=== PATIENT | male | born 1975 | race African-American/Black ===

== ENCOUNTER 2020-05-14 10:59 | Outpatient (CLI) | payer SELFPAY ==
[2020-05-14 11:14] LABS: Hematocrit 45.5 % (40.0-54.0); Hemoglobin 15.5 g/dL (14.0-18.0); Mean Corpuscular HGB Conc 34.1 g/dL (32.0-36.0); Mean Corpuscular Hemoglobin 30.8 pg (27.0-31.0); Mean Corpuscular Volume 90.3 fL (78.0-102.0); Mean Platelet Volume 10.2 fl (8.7-11.0); Platelet Count Result 240 K/mm3 (150-420); Red Blood Count 5.04 M/mm3 (4.70-6.10); Red Cell Distribution Width 13.6 % (11.6-14.4); White Blood Count 6.1 K/mm3 (4.8-10.8)
[2020-05-14 13:37] LABS: Alanine Aminotransferase 27 U/L (16-63); Albumin Level 4.6 g/dL (3.4-5.0); Alkaline Phosphatase 70 U/L (46-116); Anion Gap 18.5 mmol/L (7-16); Aspartate Amino Transferase 41 U/L (15-37); Bilirubin,Total 0.5 mg/dL (0.00-1.00); Blood Urea Nitrogen 8 mg/dL (7-18); Calcium 9.6 mg/dL (8.5-10.1); Carbon Dioxide 25 mmol/L (21-32); Chloride 97 mmol/L (98-108); Cholesterol 325 mg/dL (0-200); Estimated Glomerular Filt Rate > 60; Glucose 91 mg/dL (70-99); HDL Direct 76 mg/dL (40-60); LDL Cholesterol Calculated 187 mg/dL (<130); Osmolality Calculated 282 mOsm/kg (285-295); Potassium 3.5 mmol/L (3.5-5.1); Prostate Specific Antigen 3.8 ng/mL (< OR = 4.0); Sodium 137 mmol/L (136-145); Total Protein 8.8 g/dL (6.4-8.2); Triglycerides 310 mg/dL (0-150)
== END 2020-05-14 11:00 | disposition home or self-care (01) ==
PROVIDERS: PCP Family Medicine; Visit Provider Family Medicine
DX: Z80.42 Family history of malignant neoplasm of prostate (principal); I10 Essential (primary) hypertension
CPT/HCPCS: 36415; 80053; 80061; 84153; 85027

== ENCOUNTER 2020-12-06 08:43 | Outpatient (CLI) | payer MEDICAID, SELFPAY ==
--- NOTE | ~2020-12-06 | XR_ITS ---
XR hip LT 2V w AP pelvis DATE: 12/06/2020 09:09 INDICATION: Left hip pain. Weight loss. No known injury. TECHNIQUE: AP pelvis. AP and lateral views of left hip. COMPARISON: 11/24/2014 left hip FINDINGS: Mild left hip osteoarthritic arthritis. No fracture or dislocation, avascular necrosis or b one destruction is evident. The pubic symphysis and sacroiliac joints are intact. No pelvic fracture or bone destruction. IMPRESSION: Mild left hip osteoarthritis Reviewed, dictated and finalized at location [employer]
[2020-12-06 09:02] LABS: Hematocrit 40.8 % (40.0-54.0); Hemoglobin 13.9 g/dL (14.0-18.0); Mean Corpuscular HGB Conc 34.1 g/dL (32.0-36.0); Mean Corpuscular Hemoglobin 31.1 pg (27.0-31.0); Mean Corpuscular Volume 91.3 fL (78.0-102.0); Mean Platelet Volume 9.9 fl (8.7-11.0); Platelet Count Result 172 K/mm3 (150-420); Red Blood Count 4.47 M/mm3 (4.70-6.10); Red Cell Distribution Width 13.5 % (11.6-14.4); White Blood Count 7.2 K/mm3 (4.8-10.8)
[2020-12-06 10:02] LABS: Alanine Aminotransferase 33 U/L (16-63); Albumin Level 4.3 g/dL (3.4-5.0); Alkaline Phosphatase 84 U/L (46-116); Anion Gap 13 mmol/L (8-16); Aspartate Amino Transferase 45 U/L (15-37); Bilirubin,Total 0.4 mg/dL (0.00-1.00); Blood Urea Nitrogen 8 mg/dL (7-18); Calcium 9.3 mg/dL (8.5-10.1); Carbon Dioxide 26 mmol/L (21-32); Chloride 100 mmol/L (98-108); Estimated Glomerular Filt Rate > 60; Glucose 96 mg/dL (70-99); Lactate Dehydrogenase 166 U/L (85-227); Osmolality Calculated 286 mOsm/kg (285-295); Potassium 3.7 mmol/L (3.5-5.1); Prostate Specific Antigen 6.6 ng/mL (< OR = 4.0); Sodium 139 mmol/L (136-145); Total Protein 8.2 g/dL (6.4-8.2)
[2020-12-06 10:06] LABS: CRP < 0.2 mg/dL (0.0-0.9)
[2020-12-06 10:07] LABS: Free T4 Free Thyroxine Reflex 0.87 ng/dL (0.76-1.46); Thyroid Stimulating Hormone Reflex 5.29 u/IU/mL (0.36-3.74)
[2020-12-06 10:09] LABS: Erythrocyte Sedimentation Rate 25 mm/hr (0-15)
== END 2020-12-06 08:44 | disposition home or self-care (01) ==
LOC: CHSLAB 08:49
PROVIDERS: PCP Family Medicine; Visit Provider Family Medicine
DX: R63.4 Abnormal weight loss (principal)
CPT/HCPCS: 36415; 73502; 80053; 83615; 84153; 84439; 84443; 85027; 85652; 86140; G0103

== ENCOUNTER 2020-12-27 14:20 | Outpatient (CLI) | payer MEDICAID, SELFPAY | END 2020-12-27 14:21 | disposition home or self-care (01) | PROVIDERS: PCP Family Medicine; Visit Provider Urology | DX: R97.20 Elevated prostate specific antigen [PSA] (principal) | CPT/HCPCS: 36415; 84153 ==

== ENCOUNTER 2021-01-17 09:47 | Outpatient (CLI) | payer MEDICAID, SELFPAY | END 2021-01-17 09:48 | disposition home or self-care (01) | PROVIDERS: PCP Family Medicine | DX: Z23 Encounter for immunization (principal) | CPT/HCPCS: 0001A; 91300 ==

== ENCOUNTER 2021-02-07 09:19 | Outpatient (CLI) | payer MEDICAID, SELFPAY | END 2021-02-07 09:20 | disposition home or self-care (01) | LOC: ANHCOVIDVC 09:19 | PROVIDERS: PCP Family Medicine | DX: Z23 Encounter for immunization (principal) | CPT/HCPCS: 0002A; 91300 ==

== ENCOUNTER 2021-03-26 18:08 | Outpatient (CLI) | payer OTHER, SELFPAY ==
[2021-03-26 19:38] LABS: Prostate Specific Antigen 3.4 ng/mL (< OR = 4.0)
== END 2021-03-26 18:09 | disposition home or self-care (01) ==
LOC: CHSLAB 18:10
PROVIDERS: PCP Family Medicine; Visit Provider Urology
DX: R97.20 Elevated prostate specific antigen [PSA] (principal)
CPT/HCPCS: 36415; 84153

== ENCOUNTER 2022-01-30 09:48 | Outpatient (CLI) | payer BC, SELFPAY ==
[2022-01-30 10:05] LABS: Basophils Absolute Auto 0.07 K/mm3 (0.00-0.10); Basophils Percent Auto 1.1 % (0.0-1.0); Eosinophils Absolute Auto 0.06 K/mm3 (0.02-0.50); Eosinophils Percent Auto 0.9 % (1.0-6.0); Hematocrit 43.3 % (40.0-54.0); Hemoglobin 14.6 g/dL (14.0-18.0); Immature Granulocyte Absolute 0.02 K/mm3 (0.00-0.00); Immature Granulocyte Percent A 0.3 % (0.0-0.0); Lymphocytes Absolute Auto 3.36 K/mm3 (1.10-4.50); Lymphocytes Percent Auto 52.2 % (18.0-42.0); Mean Corpuscular HGB Conc 33.7 g/dL (32.0-36.0); Mean Corpuscular Hemoglobin 32.5 pg (27.0-31.0); Mean Corpuscular Volume 96.4 fL (78.0-102.0); Mean Platelet Volume 10.2 fl (8.7-11.0); Monocytes Absolute Auto 0.41 K/mm3 (0.10-0.90); Monocytes Percent Auto 6.4 % (2.0-11.0); Neutrophils Absolute Auto 2.5 K/mm3 (1.7-7.2); Neutrophils Percent Auto 39.1 % (50.0-70.0); Platelet Count Result 244 K/mm3 (150-420); Red Blood Count 4.49 M/mm3 (4.70-6.10); Red Cell Distribution Width 13.2 % (11.6-14.4); White Blood Count 6.4 K/mm3 (4.8-10.8)
[2022-01-30 10:11] LABS: Appearance Urine Clear (Clear); Bilirubin Urine Negative (Negative); Color Urine Yellow (Yellow); Glucose Urine UA Negative (Negative); Ketones Urine Negative (Negative); Leukocyte Esterase Ur Negative (Negative); Nitrate Urine Negative (Negative); Protein Urine Negative (Negative); Specific Grav Ur 1.025 (1.010-1.020); Urobilinogen Urine 0.2 mg/dL (0.2-1.0); pH Urine 5.5 (5.0-8.0)
[2022-01-30 10:22] LABS: Add Urine Microscopic? YES; Blood Urine Trace-lysed (Negative); RBC Urine 0-2 /hpf (0-2); Squamous Epithelial Cell Urine Rare /hpf (Few); WBC Urine 0-3 /hpf (0-3)
[2022-01-30 10:23] LABS: Bacteria Urine None seen /hpf; Mucus Urine Moderate /lpf
[2022-01-30 10:48] LABS: Alanine Aminotransferase 24 U/L (16-63); Albumin Level 4.1 g/dL (3.4-5.0); Alkaline Phosphatase 61 U/L (46-116); Anion Gap 12 mmol/L (8-16); Aspartate Amino Transferase 38 U/L (15-37); Bilirubin,Total 0.5 mg/dL (0.00-1.00); Blood Urea Nitrogen 10 mg/dL (7-18); Calcium 8.9 mg/dL (8.5-10.1); Carbon Dioxide 25 mmol/L (21-32); Chloride 103 mmol/L (98-108); Cholesterol 260 mg/dL (0-200); Estimated Glomerular Filt Rate > 60; Glucose 86 mg/dL (70-99); HDL Direct 89 mg/dL (40-60); LDL Cholesterol Calculated 123 mg/dL (<130); Osmolality Calculated 288 mOsm/kg (285-295); Prostate Specific Antigen 4.4 ng/mL (< OR = 4.0); Sodium 140 mmol/L (136-145); Thyroid Stimulating Hormone 1.64 uIU/mL (0.36-3.74); Total Protein 7.8 g/dL (6.4-8.2); Triglycerides 242 mg/dL (0-150)
[2022-02-03 10:45] LABS: ANA Cascade Screen Negative (Negative)
[2022-02-03 12:52] LABS: CRP, High Sensitivity 0.4 mg/L (***)
[2022-02-03 16:17] LABS: Lyme Disease Ab (IgM), Blot Negative (Negative); Lyme Disease Ab(IgG), Blot Negative (Negative)
== END 2022-01-30 09:49 | disposition home or self-care (01) ==
LOC: CHSLAB 09:50
PROVIDERS: PCP Family Medicine; Visit Provider Nurse Practitioner Family
DX: R80.9 Proteinuria, unspecified (principal); M25.50 Pain in unspecified joint; R53.83 Other fatigue; R61 Generalized hyperhidrosis; E78.5 Hyperlipidemia, unspecified; R97.20 Elevated prostate specific antigen [PSA]
CPT/HCPCS: 36415; 80053; 80061; 81001; 84153; 84443; 85025; 86038; 86141; 86617; 86666

== ENCOUNTER 2022-11-25 14:57 | Outpatient (CLI) | payer OTHER, SELFPAY ==
[2022-11-25 15:12] LABS: Hematocrit 42.9 % (40.0-54.0); Hemoglobin 14.4 g/dL (14.0-18.0); Mean Corpuscular HGB Conc 33.6 g/dL (32.0-36.0); Mean Corpuscular Hemoglobin 31.9 pg (27.0-31.0); Mean Corpuscular Volume 94.9 fL (78.0-102.0); Mean Platelet Volume 9.9 fl (8.7-11.0); Platelet Count Result 237 K/mm3 (150-420); Red Blood Count 4.52 M/mm3 (4.70-6.10); Red Cell Distribution Width 13.1 % (11.6-14.4); White Blood Count 7.9 K/mm3 (4.8-10.8)
[2022-11-25 15:39] LABS: Thyroid Stimulating Hormone Reflex 2.15 u/IU/mL (0.36-3.74)
[2022-11-25 16:03] LABS: Alanine Aminotransferase 26 U/L (16-63); Albumin Level 4.1 g/dL (3.4-5.0); Alkaline Phosphatase 70 U/L (46-116); Anion Gap 10 mmol/L (8-16); Aspartate Amino Transferase 36 U/L (15-37); Bilirubin,Total 0.4 mg/dL (0.00-1.00); Blood Urea Nitrogen 11 mg/dL (7-18); Calcium 9.1 mg/dL (8.5-10.1); Carbon Dioxide 27 mmol/L (21-32); Chloride 102 mmol/L (98-108); Estimated Glomerular Filt Rate > 60; Folic Acid 12.9 ng/mL (8.6->20); Glucose 91 mg/dL (70-99); Osmolality Calculated 287 mOsm/kg (285-295); Potassium 3.8 mmol/L (3.5-5.1); Prostate Specific Antigen 5.5 ng/mL (< OR = 4.0); Sodium 139 mmol/L (136-145); Total Protein 7.9 g/dL (6.4-8.2); Vitamin B12 765 pg/mL (193-986)
== END 2022-11-25 14:58 | disposition home or self-care (01) ==
LOC: CHSLAB 15:00
PROVIDERS: PCP Family Medicine; Visit Provider Family Medicine
DX: R97.20 Elevated prostate specific antigen [PSA] (principal); R35.1 Nocturia; E53.8 Deficiency of other specified B group vitamins; E11.9 Type 2 diabetes mellitus without complications; R53.83 Other fatigue
CPT/HCPCS: 36415; 80053; 82607; 82746; 84153; 84443; 85027; G0103

== ENCOUNTER 2023-01-29 09:25 | Outpatient (CLI) | payer OTHER, SELFPAY ==
[2023-01-29 09:46] LABS: Hematocrit 41.1 % (40.0-54.0); Hemoglobin 13.9 g/dL (14.0-18.0); Mean Corpuscular HGB Conc 33.8 g/dL (32.0-36.0); Mean Corpuscular Hemoglobin 31.5 pg (27.0-31.0); Mean Corpuscular Volume 93.2 fL (78.0-102.0); Mean Platelet Volume 9.5 fl (8.7-11.0); Platelet Count Result 272 K/mm3 (150-420); Red Blood Count 4.41 M/mm3 (4.70-6.10); White Blood Count 6.1 K/mm3 (4.8-10.8)
[2023-01-29 10:19] LABS: Alanine Aminotransferase 36 U/L (16-63); Alkaline Phosphatase 67 U/L (46-116); Anion Gap 10 mmol/L (8-16); Aspartate Amino Transferase 45 U/L (15-37); Bilirubin,Total 0.7 mg/dL (0.00-1.00); Blood Urea Nitrogen 6 mg/dL (7-18); Calcium 9.1 mg/dL (8.5-10.1); Carbon Dioxide 31 mmol/L (21-32); Chloride 106 mmol/L (98-108); Estimated Glomerular Filt Rate > 60; Glucose 94 mg/dL (70-99); Osmolality Calculated 301 mOsm/kg (285-295); Potassium 3.8 mmol/L (3.5-5.1); Sodium 147 mmol/L (136-145); Total Protein 7.8 g/dL (6.4-8.2)
[2023-01-29 10:21] LABS: CRP < 0.5 mg/dL (0.0-0.9)
[2023-01-29 17:06] LABS: Occult Blood Negative (Negative)
[2023-02-02 22:55] LABS: Lactoferrin, Stool Negative (Negative)
[2023-02-03 20:50] LABS: Gliadin AB, IgG <1.0 U/mL (<15.0); TTG IGA AB <1.0 U/mL (<15.0)
== END 2023-01-29 09:26 | disposition home or self-care (01) ==
LOC: CHSLAB 09:28
PROVIDERS: PCP Family Medicine; Visit Provider Family Medicine
DX: K52.9 Noninfective gastroenteritis and colitis, unspecified (principal)
CPT/HCPCS: 36415; 80053; 82272; 83516; 83630; 85027; 86140; 86255; 87045; 87427; 87493

== ENCOUNTER 2023-04-20 15:19 | Outpatient (CLI) | payer MEDICAID, SELFPAY ==
[2023-04-20 16:24] LABS: Prostate Specific Antigen 3.7 ng/mL (< OR = 4.0)
== END 2023-04-20 15:20 | disposition home or self-care (01) ==
LOC: CHSLAB 15:31
PROVIDERS: PCP Family Medicine; Visit Provider Family Medicine
DX: R97.20 Elevated prostate specific antigen [PSA] (principal)
CPT/HCPCS: 36415; 84153; G0103

== ENCOUNTER 2023-05-26 04:24 | Day surgery (SDC) | payer OTHER, SELFPAY ==
[2023-05-18 10:51] VITALS: BMI 24.7
[2023-05-26 13:19] VITALS: BP 125/85; PULSE 65; RESP 16; TEMP 36.2; O2SAT 100; BMI 24.7
[2023-05-26] MEDS: LACTATED RINGERS 1,000 ML 150 ML IV CONT (13:21)
--- NOTE | 2023-05-26 13:27 | PM.HPGS ---
History of Present Illness History of Present Illness Consent: Risks, benefits, and alternatives have been discussed and questions answered. Patient agrees to proceed with procedure. Chief complaint: Noninfective gastroenteritis and colitis Narrative: Ramana Gatica is a 47 year old male for evaluation of unintentional weight loss and diarrhea for the past 6 months. He reports appr 6 very loose to watery stools daily. ? He denies any urgency, black stools or bloody stools.? He denies any abdominal pain.? Reports diarrhea most often occurs approximately 15 minutes after eating, But diarrhea can be even worse if he does not eat. He does report occasional episodes of awakenings if he eats late at night.? Previous workup included negative stool studies, C diff, stool lactoferrin, stool occult and celiac panel. ? He reports intermittent heartburn symptoms that he treats with Prilosec as needed.? He denies any dysphagia, odynophagia, he denies any nausea or vomiting.? Review of Systems Review of Systems: All systems reviewed & are unremarkable except as noted in HPI and below PMFSH Past Medical History Medical History Family history of prostate cancer GERD (gastroesophageal reflux disease) Hyperlipidemia Hypertension Surgical History Surgical History History of ankle surgery Left Ankle. 1996. History of appendectomy Family History Family History Father Hypertension Cerebrovascular accident Mother Hypertension Diabetes mellitus Grandparent Colon cancer Social History Social History Years smoked: 14 Smoking status: Current every day smoker Tobacco type: cigars Alcohol intake: former Drinks per week: 6 Alcohol use details: Recovering alcoholic Substance use type: does not use Living arrangements: other Additional living arrangements comments: With WILLY Bonilla Home Medications and Allergies Home Medications Medication Instructions Recorded Confirmed Type hydrochlorothiazide 25 mg tablet See Rx Instructions .Route 01/30/22 05/26/23 Rx .COMPLEX #90 tabs Allergies Allergy/AdvReac Type Severity Reaction Status Date / Time latex Allergy Unknown Rash Verified 05/26/23 13:17 lisinopril Allergy Unknown Other Verified 05/26/23 13:17 Penicillins Allergy Unknown Swelling Verified 05/26/23 13:17 of Lip/Tongue/Throat atorvastatin AdvReac Unknown Other Verified 05/26/23 13:17 ALMONDS Allergy Unknown Swelling Uncoded 05/26/23 13:17 of Lip/Tongue/Throat Vital Signs Vital Signs - 24 hr 05/26/23 13:19 Temperature 36.2 C L Pulse Rate 65 Respiratory Rate 16 Blood Pressure 125/85 Pulse Oximetry 100 Oxygen Delivery Room Air Exam Const: General: alert Orientation/consciousness: patient oriented x3 Resp: Auscultation: clear to auscultation bilaterally Cardio: Rhythm: regular rhythm GI: GI Palp: Yes Soft to palpation and No Tenderness to palpation present (GI) Neuro: General: patient oriented x3 Assessment and Plan Assessment and plan (1) Weight loss: Code(s): R63.4 - Abnormal weight loss Status: Acute Assessment and Plan: EGD with possible biopsy or dilatation or cautery. (2) Chronic diarrhea: Code(s): K52.9 - Noninfective gastroenteritis and colitis, unspecified Status: Acute Assessment and Plan: Colonoscopy with possible biopsy or polypectomy or cautery or injection of substances.
--- NOTE | 2023-05-26 13:40 | P.PNAN_ITS ---
Anes - Initial Pre Proc Eval Procedure: Operation Date: 05/26/23 14:00 Proposed Procedures p Esophagogastroduodenoscopy & Colonoscopy - Ramana Hood MD Date/Time: 05/26/23 13:40 Surgeon: Ramana Hood MD Pre Op Diagnosis: Noninfective gastroenteritis and colitis Patient Data Age: 47 Gender: M Height: 1.91 m Weight: 89.8 kg Last Vital Signs Temp 97.1 F L 05/26/23 13:19 Pulse 65 05/26/23 13:19 Resp 16 05/26/23 13:19 BP 125/85 05/26/23 13:19 Pulse Ox 100 05/26/23 13:19 O2 Del Method Room Air 05/26/23 13:19 Allergies Allergy/AdvReac Type Severity Reaction Status Date / Time latex Allergy Unknown Rash Verified 05/26/23 13:17 lisinopril Allergy Unknown Other Verified 05/26/23 13:17 Penicillins Allergy Unknown Swelling Verified 05/26/23 13:17 of Lip/Tongue/Throat atorvastatin AdvReac Unknown Other Verified 05/26/23 13:17 ALMONDS Allergy Unknown Swelling Uncoded 05/26/23 13:17 of Lip/Tongue/Throat Home Medications Medication Instructions Recorded Confirmed Type hydrochlorothiazide 25 mg tablet See Rx Instructions .Route 01/30/22 05/26/23 Rx .COMPLEX #90 tabs Patient hx anesthesia problems: none Family hx anesthesia problems: none Results Review: All pre-operative results and documents have been reviewed as part of the pre- operative evaluation. [facility] Past Medical History Medical History Family history of prostate cancer GERD (gastroesophageal reflux disease) Hyperlipidemia Hypertension Surgical History Surgical History History of ankle surgery Left Ankle. 1996. History of appendectomy Family History Family History Father Hypertension Cerebrovascular accident Mother Hypertension Diabetes mellitus Grandparent Colon cancer Social History Social History Years smoked: 14 Smoking status: Current every day smoker Tobacco type: cigars Alcohol intake: former Drinks per week: 6 Alcohol use details: Recovering alcoholic Substance use type: does not use Living arrangements: other Additional living arrangements comments: With WILLY Mary Modesta Hamlin Final PreProcedure Day of Procedure 05/26/23 13:40 Patient weight: normal Heart: regular rate and rhythm Lungs: clear to auscultation Airway: Mallampati scale class II Neurological: alert and oriented Last oral intake: >/= 8 hours ASA classification: II Emergent: no Anesthetic plan: proceed Anesthesia type and monitoring: general GIVS and standard monitoring Results Review: All pre-operative results and documents have been reviewed as part of the pre- operative evaluation. Informed Consent: The patient's anesthetic plan and its attendant risks and benefits were discussed with the patient/family/POA. Questions were solicited and answers provided to the satisfaction of the patient/family/POA.
[2023-05-26] MEDS: BENZOCAINE (*SP) 60 ML SPRAY CAN (HURRICAINE) 1 SPRAY MUCOUS MEM (14:12)
--- NOTE | 2023-05-26 14:27 | SUR.OPER ---
EGD ended at 1422. Colonoscopy began at 1428.
[2023-05-26] MEDS: SIMETHICONE ORAL SUSPENSION 20 MG/0.3 ML 30 ML BOTTLE 0.6 ML IRRIGATION (14:33)
[2023-05-26 14:43] VITALS: BP 121/78; PULSE 76; RESP 20; O2SAT 100
[2023-05-26 14:53] VITALS: BP 126/88; PULSE 68; RESP 20; O2SAT 100
[2023-05-26 15:03] VITALS: BP 130/94; PULSE 62; RESP 20; O2SAT 100
== END 2023-05-26 15:08 | disposition home or self-care (01) ==
PROVIDERS: PCP Family Medicine; Visit Provider Internal Medicine Gastroenterology
PROC: 0DJ08ZZ Inspection of Upper Intestinal Tract, Via Natural or Artificial Opening Endoscopic (ICD-10-PCS; CPT 43235; principal; 2023-05-26 14:00)
DX: R19.7 Diarrhea, unspecified (principal); K21.9 Gastro-esophageal reflux disease without esophagitis; R63.4 Abnormal weight loss; Z68.24 Body mass index [BMI] 24.0-24.9, adult; I10 Essential (primary) hypertension; E78.5 Hyperlipidemia, unspecified; F17.290 Nicotine dependence, other tobacco product, uncomplicated; F10.21 Alcohol dependence, in remission
CPT/HCPCS: 45380; 43239; 87081; 88305; J2704; J7120

== ENCOUNTER 2023-11-18 14:29 | Outpatient (CLI) | payer OTHER, SELFPAY ==
[2023-11-18 14:44] LABS: Basophils Absolute Auto 0.09 K/mm3 (0.00-0.10); Basophils Percent Auto 1.4 % (0.0-1.0); Eosinophils Absolute Auto 0.06 K/mm3 (0.02-0.50); Eosinophils Percent Auto 0.9 % (1.0-6.0); Hematocrit 43.3 % (40.0-54.0); Hemoglobin 14.6 g/dL (14.0-18.0); Immature Granulocyte Absolute 0.01 K/mm3 (0.00-0.00); Immature Granulocyte Percent A 0.2 % (0.0-0.0); Lymphocytes Absolute Auto 3.09 K/mm3 (1.10-4.50); Mean Corpuscular HGB Conc 33.7 g/dL (32.0-36.0); Mean Corpuscular Hemoglobin 31.3 pg (27.0-31.0); Mean Corpuscular Volume 92.9 fL (78.0-102.0); Mean Platelet Volume 9.3 fl (8.7-11.0); Monocytes Absolute Auto 0.54 K/mm3 (0.10-0.90); Monocytes Percent Auto 8.2 % (2.0-11.0); Neutrophils Absolute Auto 2.8 K/mm3 (1.7-7.2); Neutrophils Percent Auto 42.3 % (50.0-70.0); Platelet Count Result 252 K/mm3 (150-420); Red Blood Count 4.66 M/mm3 (4.70-6.10); Red Cell Distribution Width 13.2 % (11.6-14.4); White Blood Count 6.6 K/mm3 (4.8-10.8)
[2023-11-18 15:23] LABS: Alanine Aminotransferase 28 U/L (16-63); Alkaline Phosphatase 79 U/L (46-116); Anion Gap 17 mmol/L (8-16); Aspartate Amino Transferase 40 U/L (15-37); Bilirubin,Total 0.8 mg/dL (0.00-1.00); Blood Urea Nitrogen 16 mg/dL (7-18); Calcium 9.3 mg/dL (8.5-10.1); Carbon Dioxide 23 mmol/L (21-32); Chloride 97 mmol/L (98-108); Estimated Glomerular Filt Rate > 60; Glucose 89 mg/dL (70-99); Lipase 11 U/L (16-77); Osmolality Calculated 284 mOsm/kg (285-295); Potassium 3.7 mmol/L (3.5-5.1); Sodium 137 mmol/L (136-145); Total Protein 8.1 g/dL (6.4-8.2)
[2023-11-18 15:29] LABS: CRP < 0.5 mg/dL (0.0-0.9)
== END 2023-11-18 14:30 | disposition home or self-care (01) ==
PROVIDERS: PCP Family Medicine; Visit Provider Family Medicine
DX: R10.9 Unspecified abdominal pain (principal); K52.9 Noninfective gastroenteritis and colitis, unspecified
CPT/HCPCS: 36415; 80053; 83690; 85025; 86140

== ENCOUNTER 2024-04-14 10:21 | Outpatient (CLI) | payer OTHER, SELFPAY ==
[2024-04-14 10:36] LABS: Basophils Absolute Auto 0.09 K/mm3 (0.00-0.10); Basophils Percent Auto 1.2 % (0.0-1.0); Eosinophils Absolute Auto 0.05 K/mm3 (0.02-0.50); Eosinophils Percent Auto 0.7 % (1.0-6.0); Hemoglobin 13.4 g/dL (14.0-18.0); Immature Granulocyte Absolute 0.01 K/mm3 (0.00-0.00); Immature Granulocyte Percent A 0.1 % (0.0-0.0); Lymphocytes Absolute Auto 3.89 K/mm3 (1.10-4.50); Lymphocytes Percent Auto 53.3 % (18.0-42.0); Mean Corpuscular HGB Conc 34.4 g/dL (32-36); Mean Corpuscular Hemoglobin 32.4 pg (27.0-31.0); Mean Corpuscular Volume 94.4 fL (78.0-102.0); Mean Platelet Volume 9.7 fl (8.7-11.0); Monocytes Absolute Auto 0.53 K/mm3 (0.10-0.90); Monocytes Percent Auto 7.3 % (2.0-11.0); Neutrophils Absolute Auto 2.73 K/mm3 (1.70-7.20); Neutrophils Percent Auto 37.4 % (50.0-70.0); Platelet Count Result 239 K/mm3 (150-420); Red Blood Count 4.13 M/mm3 (4.70-6.10); Red Cell Distribution Width 13.4 % (11.6-14.4); White Blood Count 7.3 K/mm3 (4.8-10.8)
[2024-04-14 11:53] LABS: Erythrocyte Sedimentation Rate 15 mm/hr (0-15)
[2024-04-14 14:30] LABS: Alanine Aminotransferase 39 U/L (16-63); Albumin Level 3.9 g/dL (3.4-5.0); Alkaline Phosphatase 82 U/L (46-116); Anion Gap 16 mmol/L (4-12); Aspartate Amino Transferase 56 U/L (15-37); Bilirubin,Total 0.6 mg/dL (0.00-1.00); Blood Urea Nitrogen 11 mg/dL (7-18); CRP < 0.5 mg/dL (0.0-0.9); Calcium 9.2 mg/dL (8.5-10.1); Carbon Dioxide 21 mmol/L (21-32); Chloride 103 mmol/L (98-108); Estimated Glomerular Filt Rate > 60; Folic Acid 13.2 ng/mL (8.6->20); Glucose 89 mg/dL (70-99); Osmolality Calculated 288 mOsm/kg (285-295); Potassium 3.8 mmol/L (3.5-5.1); Sodium 140 mmol/L (136-145); Total Protein 7.7 g/dL (6.4-8.2); Vitamin B12 519 pg/mL (193-986)
[2024-04-17 13:19] LABS: ANA Cascade Screen NEGATIVE (NEGATIVE)
== END 2024-04-14 10:22 | disposition home or self-care (01) ==
PROVIDERS: PCP Family Medicine; Visit Provider Family Medicine
DX: E03.9 Hypothyroidism, unspecified (principal); E53.8 Deficiency of other specified B group vitamins; U09.9 Post COVID-19 condition, unspecified; M79.642 Pain in left hand; M79.641 Pain in right hand
CPT/HCPCS: 36415; 80053; 82607; 82746; 83516; 84443; 85025; 85652; 86038; 86140; 86225; 86235

== ENCOUNTER 2024-06-29 13:27 | Emergency (ER) | payer OTHER, SELFPAY ==
[2024-06-29 13:44] VITALS: BP 147/97; PULSE 80; RESP 15; TEMP 36.3; O2SAT 97
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
== END 2024-06-29 14:48 | disposition home or self-care (01) ==
PROVIDERS: Emergency Provider Nurse Practitioner Family; PCP Family Medicine
DX: M25.532 Pain in left wrist (principal); F17.290 Nicotine dependence, other tobacco product, uncomplicated; K21.9 Gastro-esophageal reflux disease without esophagitis; E78.5 Hyperlipidemia, unspecified; I10 Essential (primary) hypertension
CPT/HCPCS: 99213; G0463